=== PATIENT | male | born 1990 ===

== ENCOUNTER 2018-04-15 18:12 | Emergency (ER) | payer BC, OTHER ==
[2018-04-15 19:00] VITALS: BP 125/82; TEMP 99.3
[2018-04-15] MEDS ORDERED: Morphine 4 mg/ml ISec IVP STA (19:03)
[2018-04-15] MEDS ORDERED: Sodium Chloride 0.9% 1,000 ML IV STA (19:03)
--- NOTE | 2018-04-15 19:10 | ED PDOC ---
"Arrival/HPI - General Historian: Patient - History of Present Illness Time/Duration: 24 hours Symptom Onset: Sudden Symptom Course: Unchanged Activities at Onset: Light Context: Home <Howie Dickinson - Last Filed: 04/15/18 21:14> <Mavis Fernández P - Last Filed: 04/15/18 23:42> - General Chief Complaint: Abdominal Pain Time Seen by Provider: 04/15/18 18:58 - History of Present Illness Narrative History of Present Illness (Text): 04/15/18 19:07 28 year old male, with no significant past medical history, who presents to the emergency department complaining of abdominal pain since yesterday. Patient notes he ate at a picnic yesterday and began experiencing epigastric pain. Patient notes today he ate a burger and began experiencing RUQ pain. Patient denies any fever, chills, chest pain, shortness of breath, nausea, vomiting, diarrhea, back pain, neck pain, headache, dizziness, or any other complaints. ( Howie Dickinson) Past Medical History - Provider Review Nursing Documentation Reviewed: Yes - Infectious Disease Hx of Infectious Diseases: None - Psychiatric Hx Substance Use: No - Anesthesia Hx Anesthesia: No <Howie Dickinson - Last Filed: 04/15/18 21:14> Family/Social History - Physician Review Nursing Documentation Reviewed: Yes Family/Social History: Unknown Family HX Smoking Status: Unknown If Ever Smoked Hx Alcohol Use: No Hx Substance Use: No <Howie Dickinson - Last Filed: 04/15/18 21:14> Allergies/Home Meds <Howie Dickinson - Last Filed: 04/15/18 21:14> <Mavis Fernández P - Last Filed: 04/15/18 23:42> Allergies/Adverse Reactions: Allergies No Known Allergies Allergy (Verified 04/15/18 19:00) Review of Systems - Physician Review All systems were reviewed & negative as marked: Yes - Review of Systems Constitutional: Normal Eyes: Normal ENT: Normal Respiratory: Normal. absent: SOB, Cough Cardiovascular: Normal. absent: Chest Pain Gastrointestinal: Abdominal Pain (RUQ pain). absent: Diarrhea, Nausea, Vomiting Genitourinary Male: Normal. absent: Dysuria, Frequency Musculoskeletal: Normal. absent: Back Pain, Neck Pain Skin: Normal. absent: Rash Neurological: Normal. absent: Headache, Dizziness Endocrine: Normal Hemo/Lymphatic: Normal Psychiatric: Normal <Howie Dickinson - Last Filed: 04/15/18 21:14> Physical Exam Vital Signs Reviewed: Yes Temperature: Afebrile Blood Pressure: Normal Pulse: Regular Respiratory Rate: Normal Appearance: Positive for: Well-Appearing, Non-Toxic, Comfortable Pain Distress: None Mental Status: Positive for: Alert and Oriented X 3 - Systems Exam Head: Present: Atraumatic, Normocephalic Pupils: Present: PERRL Extroacular Muscles: Present: EOMI Conjunctiva: Present: Normal Mouth: Present: Moist Mucous Membranes Neck: Present: Normal Range of Motion Respiratory/Chest: Present: Clear to Auscultation, Good Air Exchange. No: Respiratory Distress, Accessory Muscle Use Cardiovascular: Present: Regular Rate and Rhythm, Normal S1, S2. No: Murmurs Abdomen: Present: Other (positive Trinidad's sign). No: Tenderness, Distention, Peritoneal Signs Back: Present: Normal Inspection Upper Extremity: Present: Normal Inspection. No: Cyanosis, Edema Lower Extremity: Present: Normal Inspection. No: Edema Neurological: Present: GCS=15, CN II-XII Intact, Speech Normal Skin: Present: Warm, Dry, Normal Color. No: Rashes Psychiatric: Present: Alert, Oriented x 3, Normal Insight, Normal Concentration <Howie Dickinson - Last Filed: 04/15/18 21:14> Vital Signs Temp Pulse Resp BP Pulse Ox 04/15/18 18:57 99.3 F 67 18 125/82 98 Medical Decision Making <Howie Dickinson - Last Filed: 04/15/18 21:14> Re-evaluation Time: 23:38 Reassessment Condition: Re-examined, Improved - Lab Interpretations I have reviewed the lab results: Yes Interpretation: Abnormal lab values (elevated LFTs) <Mavis Fernández - Last Filed: 04/15/18 23:42> ED Course and Treatment: 04/15/18 19:11 Impression: 28 year old male presents to the emergency department complaining of abdominal pain since yesterday. Plan: -- Urinalysis -- Labs -- Morphine -- Zofran -- Sodium Chloride -- US Abd -- Reassess and disposition Progress Notes: 04/15/18 21:14 US abd reviewed, shows: Liver: There is diffuse increased hepatic echogenicity consistent with steatosis. No mass. No intrahepatic bile duct dilation. The liver span is 15 cm. Gallbladder: Unremarkable. No gallstones. Common bile duct: Unremarkable as visualized. No stones. 4.8 mm Pancreas: Pancreatic duct dilatation 1.1 mm. Kidneys: Unremarkable. No stones. No solid mass. No hydronephrosis. The RIGHT kidney measures 11.3 cm x 4.7 cm x 5.5 cm. LEFT kidney measures 10.9 cm x 5.2 cm x 5.9 cm. Spleen: Unremarkable. No splenomegaly. 11.2 cm x 3.9 cm. Aorta: Unremarkable. No aneurysm. Inferior vena cava: Unremarkable. IMPRESSION: 1. Hepatic steatosis. 2. Mild pancreatic duct dilatation. 3. Otherwise negative examination (Howie Dickinson) 04/15/18 22:11 Dr. Dickinson stated that he ordered a CT scan of abdomen. He recommended if CT scan is negative to d/c patient home and to prescribe medication for GERD (Mavis Fernández P) - Lab Interpretations Lab Results: 04/15/18 19:20 04/15/18 19:20 Lab Results 04/15/18 19:20: Sodium 143, Potassium 4.1, Chloride 101, Carbon Dioxide 28, Anion Gap 18, BUN 15, Creatinine 0.7 L, Est GFR ( Amer) > 60, Est GFR ( Non-Af Amer) > 60, Random Glucose 95, Calcium 9.9, Total Bilirubin 0.6, AST 60 H , ALT 119 H, Alkaline Phosphatase 83, Total Protein 8.0, Albumin 4.7, Globulin 3.3, Albumin/Globulin Ratio 1.4, Lipase 66 04/15/18 19:20: Urine Color Yellow, Urine Appearance Clear, Urine pH 6.0, Ur Specific [place] 1.025, Urine Protein Negative, Urine Glucose (UA) Negative, Urine Ketones Negative, Urine Blood Negative, Urine Nitrate Negative, Urine Bilirubin Negative, Urine Urobilinogen 0.2, Ur Leukocyte Esterase Negative 04/15/18 19:20: PT 11.6, INR 1.02 04/15/18 19:20: WBC 9.4, RBC 5.48, Hgb 16.2, Hct 46.4, MCV 84.7, MCH 29.6, MCHC 34.9, RDW 13.5, Plt Count 219, MPV 10.1, Gran % 70.5 H, Lymph % (Auto) 19.8 L, Towner % (Auto) 7.8 H, Eos % (Auto) 1.6, Baso % (Auto) 0.3, Gran # 6.59 H, Lymph # (Auto) 1.9, Towner # (Auto) 0.7 H, Eos # (Auto) 0.2, Baso # (Auto) 0.03 - RAD Interpretation Narrative RAD Interpretations (Text): 04/15/18 22:56 FINDINGS: Lung bases: Unremarkable. No mass. No consolidation. ABDOMEN: Liver: Fatty infiltration of the liver. Gallbladder and bile ducts: Unremarkable. No calcified stones. No ductal dilation. Pancreas: Pancreas evaluation is limited. No ductal dilation. Spleen: Unremarkable. No splenomegaly. Adrenals: Unremarkable. No mass. Kidneys and ureters: Unremarkable. No solid mass. No hydronephrosis. Stomach and bowel: Bowel evaluation is limited due to lack of distention. No mucosal thickening. PELVIS: NNEKA CAMPOS | Preliminary Radiology Report ANTENNA RIGGER (QA) DISCREPANCY? If there is a discrepancy between the preliminary and final interpretation, please notify [facility] via [email or web address]. If you do not have access to our QA portal, call our QA team at [phone] CONFIDENTIALITY STATEMENT This report is intended only for the use of the referring physician, and only in accordance with law, If you received this in error, call [phone] Page 2 of 2 Appendix: No findings to suggest acute appendicitis. Bladder: Unremarkable. No mass. Reproductive: Unremarkable as visualized. ABDOMEN and PELVIS: Intraperitoneal space: Unremarkable. No free air. No significant fluid collection. Bones/joints: No acute fracture. No dislocation. Soft tissues: Unremarkable. Vasculature: Unremarkable. No abdominal aortic aneurysm. Lymph nodes: Unremarkable. No enlarged lymph nodes. IMPRESSION: Fatty infiltration of the liver. (Mavis Fernández) Radiology Orders: 04/15/18 19:03 ABDOMEN COMPLETE [US] Stat 04/15/18 21:19 ABD & PELVIS IV CONTRAST ONLY [CT] Stat - Medication Orders Current Medication Orders: Discontinued Medications Sodium Chloride (Sodium Chloride 0.9%) 1,000 mls @ 999 mls/hr IV .Q1H1M STA Stop: 04/15/18 20:03 Last Admin: 04/15/18 19:13 Dose: 999 mls/hr eMAR Start Stop Document 04/15/18 19:13 GMD (Rec: 04/15/18 19:13 GMD [id number]) Intravenous Solution Start Date 04/15/18 Start Time 19:13 End Date 04/15/18 End time 20:14 Total Infusion Time 61 Morphine Sulfate (Morphine) 4 mg IVP STAT STA Stop: 04/15/18 19:04 Last Admin: 04/15/18 19:13 Dose: 4 mg MAR Pain Assessment Document 04/15/18 19:13 GMD (Rec: 04/15/18 19:13 GMD [id number]) Pain Reassessment Is this a pain reassessment? No IVP Administration Document 04/15/18 19:13 GMD (Rec: 04/15/18 19:13 GMD [id number]) Charges for Administration # of IVP Administrations 1 Ondansetron HCl (Zofran Inj) 4 mg IVP STAT STA Stop: 04/15/18 19:04 Last Admin: 04/15/18 19:13 Dose: 4 mg IVP Administration Document 04/15/18 19:13 GMD (Rec: 04/15/18 19:13 GMD [id number]) Charges for Administration # of IVP Administrations 1 - Scribe Statement The provider has reviewed the documentation as recorded by the Scribe <Howie Dickinson - Last Filed: 04/15/18 21:14> <Mavis Fernández - Last Filed: 04/15/18 23:42> - Scribe Statement Joya Poole All medical record entries made by the Scribe were at my direction and personally dictated by me. I have reviewed the chart and agree that the record accurately reflects my personal performance of the history, physical exam, medical decision making, and the department course for this patient. I have also personally directed, reviewed, and agree with the discharge instructions and disposition. (Howie Dickinson) Disposition/Present on Arrival - Present on Arrival History of DVT/PE: No History of Uncontrolled Diabetes: No Urinary Catheter: No History of Decub. Ulcer: No History Surgical Site Infection Following: None <Howie Dickinson - Last Filed: 04/15/18 21:14> - Present on Arrival Any Indicators Present on Arrival: No History of DVT/PE: No History of Uncontrolled Diabetes: No Urinary Catheter: No History of Decub. Ulcer: No - Disposition Have Diagnosis and Disposition been Completed?: Yes Disposition Time: 23:39 Patient Plan: Discharge <Mavis Fernández - Last Filed: 04/15/18 23:42> - Disposition Diagnosis: Nonspecific abdominal pain, GERD (gastroesophageal reflux disease), Elevated liver enzymes Disposition: HOME/ ROUTINE Condition: IMPROVED Discharge Instructions (ExitCare): Acid Reflux (Gastroesophageal Reflux Disease ), Adult (DC) Additional Instructions: Call private doctor for follow up visit in 1-2 days. Take medication as instructed. Avoid spicy food, fatty meals, caffeinated beverages, alcohol. Do not lay down after eating meals or drink for at least 2 hours. Return to emergency if symptoms worsen. Prescriptions: Famotidine [Pepcid] 40 mg PO DAILY #20 tablet Sucralfate [Carafate] 1 gm PO DAILY #20 tab Referrals: Don Romano MD [Staff Provider] - Follow up with primary Forms: [employer] (Ecuadorean), WORK NOTE"
[2018-04-15 20:04] LABS: ALB/GLOB RATIO 1.4 (1.1-1.8); ALBUMIN 4.7 g/dL (3.0-4.8); ALT/SGPT 119 U/L (7-56); AST/SGOT 60 U/L (17-59); BLOOD UREA NITROGEN 15 mg/dL (7-21); CALCIUM 9.9 mg/dL (8.4-10.5); GFR AFRICAN-AMERICAN > 60; GFR NON-AFRICAN AMERICAN > 60; LIPASE 66 U/L (23-300)
[2018-04-15 20:08] LABS: URINE BILIRUBIN NEGATIVE (NEGATIVE); URINE BLOOD NEGATIVE (NEGATIVE); URINE GLUCOSE (UA) NEGATIVE (NEGATIVE); URINE LEUKOCYTE ESTERASE NEGATIVE Leu/uL (NEGATIVE); URINE PROTEIN NEGATIVE mg/dL (<30 mg/dL); URINE UROBILINOGEN 0.2 E.U./dL (<1 E.U./dL)
[2018-04-15 20:10] LABS: BASO # 0.03 K/mm3 (0.0-2.0); BASO % 0.3 % (0.0-3.0); EOS # 0.2 (0.0-0.7); EOS % 1.6 % (1.5-5.0); GRAN # 6.59 (1.4-6.5); GRAN % 70.5 % (50.0-68.0); HEMOGLOBIN 16.2 g/dL (14.0-18.0); LYMPH # 1.9 (1.2-3.4); LYMPH % 19.8 % (22.0-35.0); MEAN CELL VOLUME 84.7 fl (80.0-105.0); MEAN CORPUSCULAR HEMOGLOBIN 29.6 pg (25.0-35.0); MEAN CORPUSCULAR HGB CONC 34.9 g/dl (31.0-37.0); MEAN PLATELET VOLUME 10.1 fl (7.0-11.0); MONO # 0.7 (0.1-0.6); MONO % 7.8 % (1.0-6.0); RBC 5.48 10^6/uL (3.5-6.1); RED CELL DISTRIBUTION WIDTH 13.5 % (11.5-14.5); WHITE BLOOD COUNT 9.4 10^3/ul (4.5-11.0)
[2018-04-15 20:12] LABS: URINE APPEARANCE CLEAR (CLEAR); URINE COLOR YELLOW (YELLOW)
[2018-04-15 20:18] LABS: INR 1.02 (0.93-1.08); PROTHROMBIN TIME 11.6 SECONDS (9.4-12.5)
[2018-04-15] MEDS ORDERED: Atrop/Hyosc/Scopal/PB Elixir (120 ml) PO STA (23:37)
[2018-04-15] MEDS ORDERED: Alum-Mag Hydrox-Simethicone Susp (30 mL) PO STA (23:37)
[2018-04-16 05:10] VITALS: PULSE 82; RESP 20; O2SAT 99
--- NOTE | 2018-04-16 08:46 | CT ---
Date of service: 04/15/2018 PROCEDURE: CT Abdomen and Pelvis with contrast HISTORY: Pancreatic Duct Dilitation and Abdominal Pain COMPARISON: None. TECHNIQUE: Contrast dose: 100 mL Omnipaque 350 Radiation dose: Total exam DLP = 429.94 mGy-cm. This CT exam was performed using one or more of the following dose reduction techniques: Automated exposure control, adjustment of the mA and/or kV according to patient size, and/or use of iterative reconstruction technique. FINDINGS: LOWER THORAX: Unremarkable. LIVER: Normal size and contour. Diffusely diminished attenuation consistent with fatty infiltration. There is focal fatty sparing adjacent to the gallbladder fossa. No mass. No biliary ductal dilatation. GALLBLADDER AND BILE DUCTS: Unremarkable. PANCREAS: Unremarkable. No gross lesion or ductal dilatation. SPLEEN: Unremarkable. ADRENALS: Unremarkable. No mass. KIDNEYS AND URETERS: Unremarkable. No hydronephrosis. No solid mass. VASCULATURE: Unremarkable. No aortic aneurysm. BOWEL: Unremarkable. No obstruction. No gross mural thickening. APPENDIX: Normal appendix. PERITONEUM: Unremarkable. No free fluid. No free air. LYMPH NODES: Unremarkable. No enlarged lymph nodes. BLADDER: Unremarkable. REPRODUCTIVE: Normal prostate BONES: No acute fracture. OTHER FINDINGS: None. IMPRESSION: No evidence of pancreatitis. No pancreatic ductal dilatation or mass. Fatty infiltration of the liver. Otherwise unremarkable examination. The preliminary findings for this examination were reported by [facility] at 10:32 p.m. on 04/15/2018. There is concurrence of this report with the preliminary findings.
== END 2018-04-16 00:30 | disposition home or self-care (01) ==
LOC: ED 18:12
DX: K21.9 Gastro-esophageal reflux disease without esophagitis (principal); K76.0 Fatty (change of) liver, not elsewhere classified; R10.11 Right upper quadrant pain
CPT/HCPCS: 74177; 76700; 80053; 81003; 83690; 85025; 85610; 96361; 96374; 96375; 99283; J2270; J2405; J7030

== ENCOUNTER 2018-06-07 06:28 | Day surgery (SDC) | payer OTHER ==
[2018-05-30 09:00] VITALS: BMI 26.4
[2018-06-07 06:48] VITALS: RESP 16
[2018-06-07] MEDS ORDERED: Propofol 10 mg/ml Inj (20 ML) ONE ×2 (08:47→08:58)
[2018-06-07] MEDS ORDERED: Sodium Chloride 0.9% 1,000 ML IV SCH (09:30)
[2018-06-07 10:34] VITALS: BP 109/56; PULSE 61; TEMP 97.9; O2SAT 97
== END 2018-06-07 10:26 | disposition home or self-care (01) ==
LOC: ENDO 06:28
PROVIDERS: ATTEND Internal Medicine Gastroenterology
DX: K29.70 Gastritis, unspecified, without bleeding (principal); B96.81 Helicobacter pylori [H. pylori] as the cause of diseases classified elsewhere
CPT/HCPCS: 43239; 88305; 88342; J2001; J2704; J7030; J7040